=== PATIENT | female | born 1970 | race Caucasian/White ===

== ENCOUNTER → 2021-10-13 | Outpatient (CLI) | payer OTHER ==
[2021-10-13 22:20] LABS: HCT 38.6 % (37.2-46.3); HGB 11.2 g/dL (12.0-15.0); MCH 23.4 pg (27.0-32.0); MCV 80.8 fL (80.0-97.0); Mean Platelet Volume 11.2 fL (9.5-12.2); NRBC Per 100 WBC 0 /100 WBCS (0.0-0.0); Platelet Count 378 X 10*3/uL (140-440); RBC 4.78 X 10*6/uL (4.10-5.20); RDW 15.9 % (11.5-14.5); WBC 5.94 X 10*3/uL (4.50-10.00)
[2021-10-14 02:18] LABS: ALT 25 U/L (8-44); AST 28 U/L (13-35); African American GFR (CKD) 125.4 (60.0-200.0); Albumin 4.4 g/dL (3.8-4.9); Albumin/Globulin Ratio 1.87 (1.60-3.17); Alkaline Phosphatase 73 U/L (41-126); BUN/Creat Ratio 13.36 Ratio (12.00-20.00); Blood Urea Nitrogen 7.6 mg/dL (9.0-27.0); Calcium 9.5 mg/dL (8.7-10.3); Carbon Dioxide 22.7 mmol/L (20.0-27.5); Chloride 101 mmol/L (96-109); Chol/HDL Ratio 6.67 Ratio; Globulin 2.3 g/dL (1.6-3.3); Glucose 165 mg/dL (70-110); LDL Cholesterol,Calculated 91.5 mg/dL (0.0-131.0); Non-African American GFR(CKD) 108.2 (60.0-200.0); Potassium 3.7 mmol/L (3.5-5.5); Sodium 137 mmol/L (135-145); Total Bilirubin <0.15 mg/dL (0.30-1.20); Total Protein 6.7 g/dL (6.2-8.2)
== END | disposition home or self-care (01) ==
LOC: LABWHC1 15:50
PROVIDERS: ATTEND Physician Assistant
DX: E11.65 Type 2 diabetes mellitus with hyperglycemia (principal); E66.9 Obesity, unspecified; E78.5 Hyperlipidemia, unspecified; E03.9 Hypothyroidism, unspecified
CPT/HCPCS: 36415; 80053; 80061; 83036; 84443; 85027

== ENCOUNTER → 2023-03-24 | Outpatient (CLI) | payer OTHER ==
[~2023-03-24] MED LIST: IRON SUCROSE 200 MG in SODIUM CHLORIDE 0.9% 100 ML IVPB NR; SODIUM CHLORIDE 0.9% 500 ML 500 ML in EMPTY BAG 1 BAG IV PRN
[2023-03-24 10:08] VITALS: BP 101/67; PULSE 96; RESP 15; TEMP 98.2
== END ==
LOC: PROCWHC3 09:37
PROVIDERS: ATTEND Family Medicine
DX: D50.9 Iron deficiency anemia, unspecified (principal)
CPT/HCPCS: 96365; J1756